=== PATIENT | female | born 1960 | race Caucasian/White ===

== ENCOUNTER → 2019-05-15 | Day surgery (SDC) | payer BC, OTHER ==
[2019-05-01 09:29] LABS: HEMATOCRIT 42.1 % (37.0-47.0); HEMOGLOBIN 13.9 gm/dL (12.0-15.0); MCH 30.3 pg (26.0-34.0); MCV 91.9 fL (80.0-100.0); RBC 4.58 mil/uL (4.20-5.00); RDW 12.8 % (10.5-14.5); WBC 5.9 thou/uL (4.0-11.0)
[2019-05-01 09:40] LABS: PROTIME 9.6 Seconds (9.3-11.4)
[2019-05-01 09:42] LABS: CALCIUM 9.9 mg/dL (8.5-10.1); CREATININE 0.9 mg/dL (0.6-1.0); POTASSIUM 4.7 mmol/L (3.5-5.1)
[2019-05-01 09:43] LABS: URINE BILIRUBIN NEGATIVE (Negative); URINE BLOOD TRACE (Negative); URINE CLARITY CLEAR; URINE COLOR YELLOW; URINE GLUCOSE-RANDOM* NEGATIVE (Negative); URINE KETONES NEGATIVE (Negative); URINE LEUKOCYTES-REFLEX TRACE (Negative); URINE NITRITE-REFLEX NEGATIVE (Negative); URINE PROTEIN (DIPSTICK) NEGATIVE (Negative); URINE SPECIFIC GRAVITY 1.015 (1.005-1.035); URINE UROBILINOGEN 0.2 E.U./dl (0.2-1.0)
[~2019-05-15] VITALS: Ht 165.1 cm; Wt 72.1 kg
[~2019-05-15] MED LIST: ADVIL MIGRAINE200 M1 PO; ALEVE PM CAPLE1 EACH PO; ALEVE220 MG PO; ASA81BEC PO; CHANTIX1 MG PO; HYDROCODON-ACE1 EAC7 PO; IBUPROFEN 200200 M1 PO; KEFLEX500 M1 PO; NEURONTIN 300300 M1 PO; [UNRECOGNIZED DRUG - REMARK] PO
[2019-05-15 10:28] VITALS: BP 125/69
[2019-05-15 15:05] VITALS: BP 125/69
--- NOTE | 2019-05-15 15:24 | O ---
[facility] [place] [address] OPERATIVE REPORT Name: SHERRY ALDANA Room #: REG [facility] [place] M.Lian.#: [id number] Admission: 05/15/19 Attend Phys: Tanner Amezcua MD Discharge: Date of : 56 Report #: [id number] THIS REPORT FOR: cc: Mp Rosales MD, David R. MD Abraham,Tanner Santiago MD ~ CC: Mp Amezcua DATE OF SERVICE: 05/15/2019 PREOPERATIVE DIAGNOSIS: Left hip osteoarthritis. POSTOPERATIVE DIAGNOSIS: Left hip osteoarthritis. PROCEDURE: Left total hip arthroplasty. SURGEON: Tanner Amezcua MD. UPHOLSTERY ESTIMATOR: Aide Benedict PA-C. INDICATIONS FOR UPHOLSTERY ESTIMATOR: Throughout the case, extensive retraction and manipulation of the hip including dislocation and reduction was required. This was afforded to me by my wet process miller head assistant. ANESTHESIA: LMA. IMPLANTS: [employer]hew size 15 high offset Synergy press fit stem, a size 52 R3 acetabular cup with one acetabular screw and a size 36+0 Oxinium head. ESTIMATED BLOOD LOSS: 100 mL. COMPLICATIONS: None. SPECIMENS: None. CONDITION UPON LEAVING THE OPERATING ROOM: Stable. INDICATIONS FOR PROCEDURE: The patient is a 58-year-old female with severe left hip osteoarthritis. She had failed conservative measures for this and after discussion with her, she elected for left total hip arthroplasty. DESCRIPTION OF PROCEDURE: Risks, benefits, alternatives, complications were discussed in detail with the patient including but not limited to risk of anesthesia, risk of damage to nerves, arteries, blood vessels, risk for infection, bleeding, risk for continued hip pain, leg length discrepancy, [facility] [address] [place] [address] OPERATIVE REPORT Name: SHERRY ALDANA Room #: REG [facility]..#: [id number] Admission: 05/15/19 Attend Phys: Tanner Amezcua MD Discharge: Date of : 56 Report #: [id number] instability and need for reoperation. Informed consent was obtained from the patient. Left hip was appropriately marked in the preoperative holding area. IV Ancef was given for preoperative antibiotics. She was brought to the operating room and placed in supine position on operating room table. LMA anesthesia was induced without complication. She was then placed in the right lateral decubitus position with the left hip uppermost. Left hip and lower extremity were prepped and draped in normal sterile fashion. Timeout was performed properly identifying the patient and procedure as well as the instrumentation. All in the operating room were in agreement. Standard posterior approach to the hip was made with 10 blade through the skin. Dissection was taken down to the fascia with Bovie cautery and the fascia was cleaned with [place] elevator. Fresh 10 blade was used to make a fascial incision. This was taken proximally and distally with curved Wagoner scissor. Charnley retractor was placed. Trochanteric bursa was taken down with Bovie. Short external rotators were also taken down with Bovie cautery. Piriformis tendon was identified, tagged and taken down with Bovie cautery. Capsulotomy was made and capsule ends were tagged for later repair. Hip was dislocated. There was extensive osteoarthritic change in femoral head. Femoral neck cut was made 1 cm proximal to lesser trochanter based on preoperative templating and the femoral head was removed. Deep acetabular retractors were placed. Labrum was removed sharply. Pulvinar was removed with Bovie cautery. Acetabulum was then sequentially reamed up to a size 52, at which point there was excellent bleeding cancellous bone. A size 52 R3 acetabular cup was placed and seated. One acetabular screw was placed for backup fixation and a polyethylene liner for a 36 head was placed. Attention was then turned to the femur. This was reamed and broached up to a size 15, at which point the size 15 broach was stable, was trialed with a high offset neck and a 36+0 head. Hip was reduced, taken through range of motion, found to be stable, found to have equal leg lengths. Hip was dislocated and broach was removed. A final size 15 high offset Synergy press fit stem was placed and seated. This was trialed again with a 36+0 head. Hip was reduced, taken through range of motion, found to be stable, found to have equal leg lengths. Hip was dislocated one last time and a final size 36+0 Oxinium head was placed. Hip was then reduced, taken through range of motion, found to be stable, found to have equal leg lengths. Hip was thoroughly irrigated with normal saline. Periarticular injection consisting of morphine, ropivacaine, epinephrine and Toradol was placed around the hip joint capsule. A gram of vancomycin was placed deep in the capsule. The capsule and piriformis were repaired with 0 FiberWire. Fascia was closed with 0 Vicryl, skin was closed with 2-0 Vicryl, 3-0 Monocryl. Dermabond and a SUMEET dressing was applied. The patient tolerated this procedure well and went to recovery room under care of anesthesia postoperatively. <ELECTRONICALLY SIGNED> By: Tanner Amezcua MD 05/15/19 1524 1315 [id number] Tanner Amezcua MD /nt
--- NOTE | 2019-05-16 07:57 | NUR ---
RECEIVED OT EVALUATION ORDER. PATIENT WAS DISCARGED FROM THE OR PRIOR TO OT BEING ABLE TO EVALUATE PATIENT.
--- NOTE | 2019-05-17 15:28 | EKG ---
[facility] [place] [address] ELECTROCARDIOGRAM REPORT Name: SHERRY ALDANA [place] #: [place] [facility] [place].#: [id number] Admission: 05/15/19 Attend Phys: Tanner Amezcua MD Discharge: Date of : 56 Report #: [id number] THIS REPORT FOR: cc: Mp Rosales MD, David R. MD Couchonnal, Luis F. 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
== END | disposition home or self-care (01) ==
LOC: OR 07:58
PROVIDERS: Orthopaedic Surgery
DX: M16.12 Unilateral primary osteoarthritis, left hip (principal); Z98.890 Other specified postprocedural states; Z79.899 Other long term (current) drug therapy; Z87.891 Personal history of nicotine dependence; Z98.51 Tubal ligation status; Z79.82 Long term (current) use of aspirin
CPT/HCPCS: 50010; 50101; 50382; 50414; 53000; 53078; 53368; 54118; 56524; 56527; 56528; 56530; 57095; 57103; 62110; 62900; 70005